=== PATIENT | male | born 1980 | race Caucasian/White ===

== ENCOUNTER 2019-02-03 17:36 | Emergency (ER) | payer OTHER ==
[2019-02-03 17:44] VITALS: BP 143/92; PULSE 98; TEMP 98.4; BMI 34.0
[2019-02-03] MEDS ORDERED: IBUPROFEN 600 MG TABLET (FP) PO ONE ×2 (18:15→18:24)
--- NOTE | 2019-02-03 18:21 | PDOC ---
History of Present Illness - General Chief Complaint: Injury Stated Complaint: PAIN Time Seen by Provider: 02/03/19 17:44 History Source: Patient Exam Limitations: No Limitations - History of Present Illness Initial Comments: 02/03/19 18:16 38 year old male with significant medical and surgical history of tib/fib repair of right leg, presents after fall today. Patient reports slipped and fell using right hand to break fall. Complaining of pain in right wrist, left knee and left foot. Was able to walk after incident without difficulty. States soreness to right hand and slight pain with weight bearing on left foot. Denies numbness or tingling. Occurred: reports: this afternoon Severity: reports: mild Pain Location: reports: lower extremity, upper extremity Method of Injury: Yes: fall Modifying Factors: improves with: other (no intervention was necessary) Loss of Consciousness: no loss of consciousness Associated Symptoms (Fall): denies symptoms Past History - Travel Traveled outside of the country in the last 30 days: No Close contact w/someone who was outside of country & ill: No - Past Medical History Allergies/Adverse Reactions: Allergies Allergy/AdvReac Type Severity Reaction Status Date / Time No Known Allergies Allergy Verified 11/21/13 22:21 Home Medications: Ambulatory Orders No Home Medications 0 dose .ROUTE UTDICT 11/21/13 Ibuprofen [Motrin] 800 mg PO TID #20 tablet 11/22/13 Ondansetron [Zofran *Odt*] 4 mg SL TID #30 od.tablet 11/22/13 Ibuprofen 600 mg PO TID #20 tablet 02/03/19 COPD: No HTN: No - Surgical History Cardiac Surgery: No - Immunization History Immunization Up to Date: Yes - Psycho Social/Smoking Cessation Hx Smoking History: Never smoked Have you smoked in the past 12 months: No Information on smoking cessation initiated: No 'Breaking Loose' booklet given: 11/21/13 Hx Alcohol Use: No Drug/Substance Use Hx: No Trauma Specific PMHX - Complaint Specific PMHX Arthritis: No Back Injury: No Neck Injury: No Hx Sacro Iliac Joint Dysfunction: No Review of Systems - Review of Systems Able to Perform ROS?: Yes Is the patient limited Nepalese proficient: No Constitutional: No: Chills, Fever HEENTM: No: Throat Swelling, Mouth Pain, Difficulty Swallowing Respiratory: No: Orthopnea, Wheezing Cardiac (ROS): No: Edema, Lightheadedness ABD/GI: No: Constipated, Indigestion : No: Dysuria, Pain, Urgency Musculoskeletal: Yes: Other (right hand and left foot pain) Neurological: No: Numbness, Paresthesia *Physical Exam - Vital Signs Last Vital Signs Temp Pulse Resp BP Pulse Ox 98.4 F 98 H 18 143/92 99 02/03/19 17:40 02/03/19 17:40 02/03/19 17:40 02/03/19 17:40 02/03/19 17:40 - Physical Exam General Appearance: Yes: Nourished. No: Appropriately Dressed HEENT: positive: TMs Normal, Pharynx Normal Neck: positive: Supple. negative: Lymphadenopathy (R), Lymphadenopathy (L) Respiratory/Chest: positive: Lungs Clear Cardiovascular: positive: Regular Rhythm, Regular Rate Musculoskeletal: negative: Vertebral Tenderness Extremity: positive: Normal Capillary Refill, Other (no abraision to right palm , no swelling of right wrist, no tenderness, FROM of right wrist. Left knee , left ankle and left foot with no swelling, no redness and non tender ) Neurologic: positive: Fully Oriented, Alert, Normal Response Medical Decision Making - Medical Decision Making 02/03/19 18:21 38 year old male with significant medical and surgical history of tib/fib repair of right leg, presents after fall today. Patient reports slipped and fell using right hand to break fall. s/p fall -ibuprofen d/c home f/u with ortho as needed 02/03/19 19:16 negative fracture of foot rx: ibuprofen Discharge - Discharge Information Problems reviewed: Yes Clinical Impression/Diagnosis: Fall Qualifiers: Encounter type: initial encounter Qualified Code(s): W19.XXXA - Unspecified fall, initial encounter Condition: Stable Disposition: HOME - Admission No - Additional Discharge Information Prescriptions: Ibuprofen 600 mg PO TID #20 tablet - Follow up/Referral Referrals: Vic Mobley MD [Staff Physician] - (call for appointment ) - Patient Discharge Instructions Patient Printed Discharge Instructions: How to Prevent Falls - Post Discharge Activity Work/Back to School Note: Back to Work, Back to School
== END 2019-02-03 19:21 | disposition home or self-care (01) ==
LOC: JERFT 17:36
DX: M79.641 Pain in right hand (principal); M79.672 Pain in left foot; W01.0XXA Fall on same level from slipping, tripping and stumbling without subsequent striking against object, initial encounter; Y93.89 Activity, other specified; Y92.89 Other specified places as the place of occurrence of the external cause; Y99.8 Other external cause status; Z87.81 Personal history of (healed) traumatic fracture
CPT/HCPCS: 73610-TC-LT-FY; 73630-TC-LT; 99281-25

== ENCOUNTER 2019-03-03 15:15 | Emergency (ER) | payer OTHER ==
--- NOTE | 2019-03-03 15:22 | PDOC ---
Rapid Medical Evaluation Time Seen by Provider: 03/03/19 15:19 Medical Evaluation: Allergies Allergy/AdvReac Type Severity Reaction Status Date / Time No Known Allergies Allergy Verified 11/21/13 22:21 03/03/19 15:20 I have performed a brief in-person evaluation of this patient. The patient presents with a chief complaint of: 2 days of intermittent L sided chest pain and lightheadedness, no SOB, no NV I have ordered the following: EKG, CXR, cbc, cmp, cardiac profile The patient will proceed to the ED for further evaluation. Discharge Disposition - Diagnosis Chest pain - Referrals - Patient Instructions - Post Discharge Activity
[2019-03-03 15:23] VITALS: BMI 34.8
[2019-03-03 15:59] LABS: BASO % 0.3 % (0-2.0); EOS % 1.3 % (0-4.5); HEMATOCRIT 42.8 % (35.4-49); HEMOGLOBIN 14.1 GM/dL (11.7-16.9); LYMPH % 22.6 % (8-40); MCH 30.1 pg (25.7-33.7); MCHC 32.8 g/dl (32.0-35.9); MEAN CELL VOLUME 91.8 fl (80-96); MEAN PLT VOLUME 8.5 fl (7.5-11.1); MONO % 5.8 % (3.8-10.2); PLATELET COUNT 264 K/MM3 (134-434); RBC 4.66 M/mm3 (4.00-5.60); RDW 13.6 % (11.9-15.9); WHITE BLOOD COUNT 7.6 K/mm3 (4.0-10.0)
[2019-03-03 16:19] LABS: MAGNESIUM 2.2 mg/dL (1.8-2.4); PHOSPHOROUS 3.5 mg/dL (2.5-4.9)
[2019-03-03 16:25] LABS: ALK PHOS 107 U/L (45-117); ANION GAP 7 MMOL/L (8-16); BILIRUBIN,TOTAL 0.4 mg/dL (0.2-1); BLOOD UREA NITROGEN 9.3 mg/dL (7-18); CALCIUM 8.7 mg/dL (8.5-10.1); CHLORIDE 105 mmol/L (98-107); CO2 26 mmol/L (21-32); CREATININE 0.6 mg/dL (0.55-1.3); GLUCOSE,RANDOM 97 mg/dL (74-106); POTASSIUM 4.2 mmol/L (3.5-5.1); SGOT/AST 15 U/L (15-37); SGPT/ALT 32 U/L (13-61); SODIUM 138 mmol/L (136-145); TOT PROT 7.2 g/dl (6.4-8.2)
--- NOTE | 2019-03-03 16:48 | PDOC ---
Documentation entered by Evan Newsome SCRIBE, acting as scribe for Germán Manuel MD. Germán Manuel MD: This documentation has been prepared by the Mercedez soria Xhesika, SCRIBE, under my direction and personally reviewed by me in its entirety. I confirm that the documentation accurately reflects all work, treatment, procedures, and medical decision making performed by me. History of Present Illness - General Chief Complaint: Chest Pain Stated Complaint: CHEST PAIN Time Seen by Provider: 03/03/19 15:19 History Source: Patient Exam Limitations: No Limitations - History of Present Illness Initial Comments: 03/03/19 16:31 The patient is a 38 year old male with a PMH of pre- hypertension who presents to the ED for 2 days of pressure like sensation localized at L sided chest and L shoulder. Patient notes he has been endorsing lightheadedness and 1 episode of nausea since onset of symptoms. Patient denies any worsening factors. Denies pain on exertion. Pt notes he has been going through stresses in his life. The patient denies shortness of breath, headache and dizziness. Denies fever, chills, cough, vomiting, diarrhea and constipation. Denies dysuria, frequency, urgency and hematuria. Allergies:, NKDA Social Hx: Denies current smoking, drinking, or other substance usage. Past History - Past Medical History Allergies/Adverse Reactions: Allergies Allergy/AdvReac Type Severity Reaction Status Date / Time No Known Allergies Allergy Verified 03/03/19 15:21 Home Medications: Ambulatory Orders No Home Medications 0 dose .ROUTE UTDICT 11/21/13 COPD: No HTN: No - Surgical History Cardiac Surgery: No - Immunization History Immunization Up to Date: Yes - Psycho Social/Smoking Cessation Hx Smoking History: Former smoker Have you smoked in the past 12 months: No If you are a former smoker, when did you quit?: 8 years ago Information on smoking cessation initiated: No 'Breaking Loose' booklet given: 11/21/13 Hx Alcohol Use: No Drug/Substance Use Hx: No Review of Systems - Review of Systems Able to Perform ROS?: Yes Comments:: 03/03/19 16:31 A complete review of 10 out of 10 review of systems is taken and is negative apart from what is previously mentioned below and in the HPI. *Physical Exam - Vital Signs Last Vital Signs Temp Pulse Resp BP Pulse Ox 98.5 F 109 H 18 148/91 97 03/03/19 15:21 03/03/19 15:21 03/03/19 15:21 03/03/19 15:21 03/03/19 15:21 - Physical Exam Comments: 03/03/19 16:32 Vitals: Triage Vital signs reviewed General Appearance: no acute distress, well nourished well developed, Chest Wall: Nontender Cardiac: Regular rate and rhythm, no murmurs, no rubs, no gallops, Lungs: Clear to auscultation bilateral, good air movement bilaterally, Abdomen: Soft, nondistended, normal bowel sounds, nontender to palpation Extremities: Full range of motion to all extremities, no cyanosis, clubbing, or edema Skin: Warm and dry, no rashes or lesions, no petechiae Neuro: AOX3; Cranial Nerves 2-12 grossly c intact, Strength intact to all extremities, Sensation intact to all extremities, gait normal Psych: normal mood, normal affect Heart Score/ECG Review - History History: Slightly suspicious - Electrocardiogram EKG: Normal - Age Age: </= 45 - Risk Factors Based on the list above the patient has:: No risk factors known - Troponin Troponin: </= normal limit - Score Heart Score - Total: 0 - ECG Impressions Comment:: 03/03/19 16:46 ED Treatment Course - LABORATORY CBC & Chemistry Diagram: 03/03/19 15:34 03/03/19 15:34 - ADDITIONAL ORDERS Additional order review: Laboratory Results 03/03/19 03/03/19 15:34 15:34 Sodium 138 Potassium 4.2 Chloride 105 Carbon Dioxide 26 Anion Gap 7 L BUN 9.3 Creatinine 0.6 Est GFR (CKD-EPI)AfAm 147.82 Est GFR (CKD-EPI)NonAf 127.55 Random Glucose 97 Calcium 8.7 Phosphorus 3.5 Magnesium 2.2 Total Bilirubin 0.4 AST 15 ALT 32 Alkaline Phosphatase 107 Creatine Kinase 184 Troponin I < 0.02 Total Protein 7.2 Albumin 4.0 03/03/19 15:34 RBC 4.66 MCV 91.8 MCHC 32.8 RDW 13.6 MPV 8.5 Neutrophils % 70.0 Lymphocytes % 22.6 Monocytes % 5.8 Eosinophils % 1.3 Basophils % 0.3 Medical Decision Making - Medical Decision Making 03/03/19 16:48 38 years old with no past medical history presents to the emergency department with 2-day history of chest pressure nonexertional left-sided EKG demonstrates normal sinus rhythm 106 bpm incomplete right bundle branch block no ST elevations no T wave inversions His troponin is negative His heart score is 0 Given the incomplete right bundle branch block on his EKG we have advised that he follows up with cardiology on Wednesday He was instructed to return to the ED for any severe worsening symptoms or for any concerns. Findings, need for follow-up and strict return instructions discussed with patient. 03/03/19 16:48 Discharge - Discharge Information Problems reviewed: Yes Clinical Impression/Diagnosis: Chest pain Qualifiers: Chest pain type: unspecified Qualified Code(s): R07.9 - Chest pain, unspecified Disposition: HOME - Admission No - Follow up/Referral Referrals: Linda Watson MD [Primary Care Provider] - Bentley Mg MD [Staff Physician] - - Patient Discharge Instructions Patient Printed Discharge Instructions: DI for Atypical Chest Pain Additional Instructions: Follow-up with Dr. Mg on Wednesday return to the emergency department for any severe worsening symptoms or for any concerns. - Post Discharge Activity
[2019-03-03 17:29] VITALS: BP 143/87; PULSE 100; TEMP 98
--- NOTE | 2019-03-04 14:55 | EKG ---
Test Reason : Blood Pressure : / mmHG Vent. Rate : 106 BPM Atrial Rate : 106 BPM P-R Int : 146 ms QRS Dur : 104 ms QT Int : 346 ms P-R-T Axes : 055 074 035 degrees QTc Int : 459 ms SINUS TACHYCARDIA POSSIBLE LEFT ATRIAL ENLARGEMENT INCOMPLETE RIGHT BUNDLE BRANCH BLOCK BORDERLINE ECG NO PREVIOUS ECGS AVAILABLE Confirmed by ANNE CARDONA, WILLI ([id number]) on 03/04/2019 2:55:41 PM Referred By: Confirmed By:WILLI RODRÍGUEZ MD
== END 2019-03-03 17:29 | disposition home or self-care (01) ==
LOC: JER 15:15
DX: R07.9 Chest pain, unspecified (principal); Z87.891 Personal history of nicotine dependence
CPT/HCPCS: 36415; 71046-TC-FY; 80053; 82550; 82553; 83735; 84100; 84484; 85025; 93005; 93010; 99283-25

== ENCOUNTER 2021-01-20 16:57 | Observation (INO) | payer OTHER ==
[2021-01-20 17:07] VITALS: BMI 33.6
[2021-01-20 20:38] LABS: BASO % 0.4 % (0-2.0); EOS % 0.5 % (0-4.5); HEMATOCRIT 41.1 % (35.4-49); LYMPH % 26.6 % (8-40); MCH 30.8 pg (25.7-33.7); MCHC 34.1 g/dl (32.0-35.9); MEAN CELL VOLUME 90.2 fl (80-96); MONO % 5.1 % (3.8-10.2); NEUT % 67.4 % (42.8-82.8); PLATELET COUNT 269 10^3/uL (134-434); RBC 4.55 M/mm3 (4.00-5.60); RDW 13.6 % (11.9-15.9); WHITE BLOOD COUNT 9.3 K/mm3 (4.0-10.0)
[2021-01-20 20:57] LABS: CHLORIDE 104 mmol/L (98-107); SODIUM 139 mmol/L (136-145)
[2021-01-20 20:59] LABS: CALCIUM 8.8 mg/dL (8.5-10.1)
[2021-01-20 21:00] LABS: ANION GAP 7 MMOL/L (8-16); BLOOD UREA NITROGEN 10.2 mg/dL (7-18); CO2 28 mmol/L (21-32); GLUCOSE,RANDOM 88 mg/dL (74-106)
[2021-01-20 21:03] LABS: CREATININE 0.8 mg/dL (0.55-1.3); SGOT/AST 10 U/L (15-37); SGPT/ALT 33 U/L (13-61)
[2021-01-20 21:04] LABS: BILIRUBIN,TOTAL 0.4 mg/dL (0.2-1); TOT PROT 7.9 g/dl (6.4-8.2)
[2021-01-20 21:06] LABS: ALK PHOS 117 U/L (45-117)
[2021-01-20 21:48] LABS: URINE APPEARANCE CLEAR; URINE BILIRUBIN NEGATIVE (NEGATIVE); URINE COLOR YELLOW; URINE GLUCOSE (UA) NEGATIVE (NEGATIVE); URINE KETONE NEGATIVE (NEGATIVE); URINE LEUK ESTERASE NEGATIVE (NEGATIVE); URINE NITRITE NEGATIVE (NEGATIVE); URINE PROTEIN NEGATIVE (NEGATIVE); URINE UROBILINOGEN 0.2 mg/dL (0.2-1.0)
[2021-01-20] MEDS ORDERED: ASPIRIN 81 MG CHEWABLE TABLETS PO ONE (23:19)
[2021-01-20] MEDS ORDERED: ASPIRIN 81 MG CHEWABLE TABLETS ONE (23:43)
[2021-01-21 06:44] LABS: BASO % 0.2 % (0-2.0); EOS % 1.2 % (0-4.5); HEMATOCRIT 38.1 % (35.4-49); HEMOGLOBIN 13.1 GM/dL (11.7-16.9); LYMPH % 36.5 % (8-40); MCH 31.3 pg (25.7-33.7); MCHC 34.4 g/dl (32.0-35.9); MEAN PLT VOLUME 8.4 fl (7.5-11.1); MONO % 8.6 % (3.8-10.2); NEUT % 53.5 % (42.8-82.8); PLATELET COUNT 245 10^3/uL (134-434); RBC 4.18 M/mm3 (4.00-5.60); RDW 13.7 % (11.9-15.9); WHITE BLOOD COUNT 7.8 K/mm3 (4.0-10.0)
[2021-01-21 06:54] LABS: CHLORIDE 105 mmol/L (98-107); SODIUM 139 mmol/L (136-145)
[2021-01-21 07:04] LABS: BILIRUBIN,TOTAL 0.4 mg/dL (0.2-1); CALCIUM 8.2 mg/dL (8.5-10.1); TOT PROT 6.4 g/dl (6.4-8.2)
[2021-01-21 07:05] LABS: ALBUMIN 3.2 g/dl (3.4-5.0); ANION GAP 6 MMOL/L (8-16); BLOOD UREA NITROGEN 10.2 mg/dL (7-18); CO2 28 mmol/L (21-32); GLUCOSE,RANDOM 107 mg/dL (74-106); MAGNESIUM 2.5 mg/dL (1.8-2.4)
[2021-01-21 07:06] LABS: ALK PHOS 95 U/L (45-117); CHOLESTEROL 154 mg/dL (50-200); SGOT/AST 9 U/L (15-37); SGPT/ALT 27 U/L (13-61)
[2021-01-21 07:07] LABS: CREATININE 0.7 mg/dL (0.55-1.3); HDL CHOLESTEROL 38 mg/dL (40-60); LDL CHOLESTEROL (ONLY SJRH) 95 mg/dL (5-100); TRIGLYCERIDES 151 mg/dL (0-150)
[2021-01-21] MEDS ORDERED: ASPIRIN 81 MG CHEWABLE TABLETS ONE (09:55)
[2021-01-21] MEDS ORDERED: LOSARTAN POTASSIUM 50 MG TABLET ONE (09:55)
[2021-01-21] MEDS ORDERED: LOSARTAN POTASSIUM 50 MG TABLET PO SCH (10:00)
[2021-01-21] MEDS ORDERED: ASPIRIN 81 MG CHEWABLE TABLETS PO SCH (10:00)
[2021-01-21 16:22] VITALS: BP 128/74; PULSE 82; TEMP 98.4
== END 2021-01-21 17:23 | disposition home or self-care (01) ==
LOC: JER 16:57 → JERBED 21:51
PROVIDERS: ADMIT Internal Medicine; ATTEND Family Medicine
DX: R07.9 Chest pain, unspecified (principal); R00.2 Palpitations; E66.9 Obesity, unspecified; Z68.33 Body mass index [BMI] 33.0-33.9, adult; I10 Essential (primary) hypertension; E05.90 Thyrotoxicosis, unspecified without thyrotoxic crisis or storm; F41.9 Anxiety disorder, unspecified; Z20.822 Contact with and (suspected) exposure to COVID-19
CPT/HCPCS: 36415; 71046-TC-FY; 80053; 80061; 81003; 82550; 83735; 84439; 84443; 84479; 84481; 84484; 85025; 93005; 93010; 93017; 93018; 99285-25; C9803; G0378; U0003; U0005